=== PATIENT | female | born 2000 | race Caucasian/White ===

== ENCOUNTER 2025-07-13 23:54 | Emergency (ER) | payer OTHER, SELFPAY ==
[2025-07-13 23:55] VITALS: BP 141/89
[2025-07-14 00:28] LABS: HCG, Urine Qualitative Screen Negative
--- NOTE | 2025-07-14 00:51 | ED.GENMED ---
History of Present Illness
General
Chief Complaint: Foreign Body Ingestion
Source: patient
Exam Limitations: none
Time Seen by Provider: 07/14/25 00:49
History of Present Illness
History of Present Illness:
24-year-old female presents in custody for potential swallowed foreign body. She is here for medical clearance for incarceration. She has no complaints
Phy Exam
Physical Exam
Physical Exam:
General: Well-appearing female in no acute respiratory distress
Abdomen is soft nontender
Extremities: No cyanosis
Course
Orders/Labs/Results
Orders:
Orders
07/14/25 00:09
Test Result ONCE
07/14/25 00:17
HCG, Urine Qualitative Screen Urgent
Date Specimen was Collected: 07/14/25
Time Specimen was Collected: 00:09
07/14/25 00:33
Abdomen Xray - 1 View [CR Abdomen - 1 View] Urgent
Comment:
Reason For Exam: foreign body indigestion
CR Chest Single View Urgent
Comment:
Reason For Exam: foreign body indigestion
Vital Signs
Initial and Last Documented VS:
Initial Vital Signs
Temp Pulse Resp BP Pulse Ox
98.1 F 93 16 141/89 98
07/13/25 23:55 07/13/25 23:55 07/13/25 23:55 07/13/25 23:55 07/13/25 23:55
Last Documented Vital Signs
Temp Pulse Resp BP Pulse Ox
98.1 F 93 16 141/89 98
07/13/25 23:55 07/13/25 23:55 07/13/25 23:55 07/13/25 23:55 07/14/25 00:53
MDM/Problems Addressed
Differential Diagnosis Includes:
Patient brought here 100 suspicion that she may have swallowed a foreign body. X-rays of the chest and abdomen were obtained and show no obvious acute foreign body. Patient has benign exam. She has no complaints offered. Stable for discharge to
halfway
*Pulse Oximetry
SaO2: 98
Oxygen Mode of Delivery: Room air
Patient hypoxic: no
*Critical Care Note
Total Time (30-74mins, 75-104mins- exclusive of procedures): Not Applicable
ED Attending Note
-
Portions of this chart may have been created with voice recognition software.� Occasional wrong word or��sound alike� substitutions may have occurred due to the inherent limitations of voice recognition software.
Discharge Plan
Departure
Patient Disposition: Home (Routine Discharge)
Date of Disposition: 07/14/25
Time of Disposition: 00:54
Patient with high blood pressure during this ER visit?: No
Discharge Problem:
Medical clearance for incarceration
Referrals:
[facility] [Family Provider, General]
Activity Restrictions/Additional Instructions:
You are medically cleared for incarceration. Return if needed
Interventions
Interventions:
*Risk Screen - Suicide Last Done: 07/13/25 23:58
*General Assessment Last Done: 07/13/25 23:58
*Neglect/Abuse Screening Last Done: 07/13/25 23:58
*ED COVID-19 Vaccine History Last Done: 07/13/25 23:58
*ED Influenza Vaccine History Last Done: 07/13/25 23:58
*Nursing Disposition Last Done: 07/14/25 00:57
FW-Gjuvjf-Yxlyhmgjfw Assessment Last Done: 07/14/25 00:10
ED- Pulmonary Assessment Last Done: 07/14/25 00:10
Discharge Date and Time
Discharge Date/Time: 07/14/25 00:58
Print Language: SLOVAK
== END 2025-07-14 00:58 ==
LOC: EMR 23:54
PROVIDERS: EMERGENCY PHYSICIAN Emergency Medicine
DX: Z02.89 Encounter for other administrative examinations (principal); Z65.3 Problems related to other legal circumstances
CPT/HCPCS: 99283; 71045; 74018; 81025